=== PATIENT | female | born 1990 | race Caucasian/White ===

== ENCOUNTER 2019-04-24 10:08 | Outpatient (CLI) | payer SELFPAY ==
--- NOTE | 2019-04-24 10:22 | XR_ITS ---
WS: [id number] CHEST 2 VIEWS HISTORY: POSITIVE TB SKIN TEST COMPARISON: 03/09/2007 Lungs: Clear with no abnormality. No pleural effusion or pneumothorax. Cardiac size: Normal. Mediastinum/Aorta: Normal mediastinum. Bones: Normal. XR/XR chest 2V* [id number] IMPRESSION: Normal chest.
== END 2019-04-24 10:09 | disposition home or self-care (01) ==
LOC: RAD 10:16
PROVIDERS: PCP Nurse Practitioner Family; Visit Provider Nurse Practitioner Family
DX: R76.11 Nonspecific reaction to tuberculin skin test without active tuberculosis (principal)
CPT/HCPCS: 71046

== ENCOUNTER 2019-04-29 12:15 | Outpatient (CLI) | payer OTHER, SELFPAY ==
[2019-05-01 14:32] LABS: Quantiferon Mitogen 5.71 IU/mL; Quantiferon Nil 0.02 IU/mL; Quantiferon Plus TB1 0.01 IU/mL; Quantiferon TB Gold NEGATIVE (NEGATIVE)
== END 2019-04-29 12:16 | disposition home or self-care (01) ==
PROVIDERS: PCP Nurse Practitioner Family; Visit Provider Internal Medicine Critical Care Medicine
DX: R76.11 Nonspecific reaction to tuberculin skin test without active tuberculosis (principal)
CPT/HCPCS: 86480

== ENCOUNTER → 2024-10-15 10:46 | Outpatient (BNVA) | payer OTHER, SELFPAY | PROVIDERS: PCP Nurse Practitioner Family; Visit Provider Family Medicine | DX: R10.31 Right lower quadrant pain (principal); Z51.81 Encounter for therapeutic drug level monitoring | CPT/HCPCS: 80053; 85025; 86141 ==

== ENCOUNTER 2024-10-21 07:01 | Outpatient (CLI) | payer OTHER, SELFPAY ==
--- NOTE | 2024-10-21 08:00 | CT_ITS ---
WS: [id number] CT ABDOMEN AND PELVIS WITH CONTRAST HISTORY: Right lower quadrant abd pain TECHNIQUE: Imaging performed of the abdomen and pelvis with IV contrast. Single phase imaging of the abdomen. Coronal and sagittal reformats are submitted. All CT scans at [facility] use at least one of these dose optimization techniques: automated exposure control; mA and/or kV adjustment per patient size (includes targeted exams where dose is matched to clinical indication); or iterative reconstruction. IV CONTRAST: Omnipaque 350; 100 mL IV. Oral contrast: Yes. DLP: 307.39 mGy.cm COMPARISON: None available. Lower thorax: Micronodule at the lingula. Heart is normal size. No hiatal hernia. Liver/biliary system: Normal size with no intrahepatic dilatation. Gallbladder: Normal. No gallstones or wall thickening. No pericholecystic fluid. Pancreas: Normal size pancreas and pancreatic duct. No adjacent inflammation. Spleen: Normal size spleen. No mass or infarct. Adrenal glands: Normal. Right kidney: Normal size RIGHT kidney. There is very slight dilatation of the central renal pelvis and the ureter. No stone or mass identified. Ureter returns to a more normal caliber near the pelvic brim. No perinephric stranding. Left kidney: Normal. Aorta: Normal. Lymphadenopathy: None. Free fluid: None. GI tract: Stomach is well distended with oral contrast. No small bowel obstruction. There is moderate diffuse constipation with inspissated material. Appendix is normal. No colitis. Abdominal wall: Fat containing umbilical hernia. Pelvis: No free fluid or adenopathy within the pelvis. Uterus is midline. No pelvic masses. Bones: Unremarkable. CT/CT abdomen pelvis w con* [id number] IMPRESSION: 1. Normal appendix. 2. Very slight prominence of the RIGHT renal pelvis and proximal ureter which returns to normal caliber. No stones identified. This may be secondary to peris talsis of the ureter. No perinephric stranding. 3. No free fluid or adenopathy. No free air. 4. Diffuse moderate constipation with component of obstipation.
[2024-10-21] MEDS: iohexol 350 mg/mL 500 mL Btl (per mL) PO (08:38)
[2024-10-21] MEDS: iohexol 350 mg/mL 500 mL Btl (per mL) IV (08:39)
== END 2024-10-21 07:02 | disposition home or self-care (01) ==
LOC: RAD 07:03
PROVIDERS: PCP Family Medicine; Visit Provider Family Medicine
DX: K59.00 Constipation, unspecified (principal); R10.31 Right lower quadrant pain
CPT/HCPCS: 74177

== ENCOUNTER 2024-12-09 19:06 | Emergency (ER) | payer OTHER, SELFPAY ==
[2024-12-09 19:16] VITALS: BP 133/77; PULSE 78; RESP 16; TEMP 36.6; O2SAT 99; BMI 23.7
--- NOTE | 2024-12-09 20:54 | W.ED.WOUNDLC ---
HPI - Wound/Laceration General: Chief Complaint: Wound/Laceration Stated Complaint: Bite on Back of leg Selwyn sent Time Seen by Provider: 12/09/24 20:50 Source: patient Mode of arrival: ambulatory Limitations: no limitations History of Present Illness: 34-year-old female who states she had a bite to her posterior left ankle she noticed last week states it is gradually worsened had a blister that she says was drained yesterday by Dr. Samano states today she has had some increased pain with turning a bluish color she is not sure what it bit her she is on doxycycline and a steroid denies fever Associated symptoms: Denies chills, fever(s), nausea or vomiting Related Data Home Medications ?Medication ?Instructions ?Recorded ?Confirmed levonorgestrel-ethinyl estradiol 1 tab PO DAILY 10/15/24 12/08/24 0.1 mg-20 mcg tablet (Lessina) Previous Rx's ?Medication ?Instructions ?Recorded omeprazole 40 mg capsule,delayed 40 mg PO DAILY #30 caps 10/15/24 release doxycycline hyclate 100 mg tablet 100 mg PO BID #14 tabs 12/08/24 prednisone 20 mg tablet 40 mg (2 x 20 mg) PO DAILY #10 tabs 12/08/24 hydrocodone 5 mg-acetaminophen 325 1 tab PO Q8H PRN pain 7 days #20 12/09/24 mg tablet tabs sulfamethoxazole 800 1 tab PO BID 10 days #20 tabs 12/09/24 mg-trimethoprim 160 mg tablet (Bactrim DS) Allergies Allergy/AdvReac Type Severity Reaction Status Date / Time No Known Allergies Allergy Verified 10/15/24 10:06 Review of Systems Const: Denies: fever(s), chills, body aches or change in appetite ENMT: Denies: throat pain or dental pain Card: Denies: chest pain Resp: Denies: dyspnea GI: Denies: abdominal pain, nausea, vomiting or diarrhea Musc: Denies: neck pain or back pain Skin/Breast: Reports: erythema; Denies: rash Neuro: Denies: headache(s) PFSH ED PFSH: Medical History Positive skin test for tuberculosis Surgical History (Updated 10/15/24 @ 10:12 by Salvador Samano MD) No pertinent past surgical history Social History Smoking and tobacco/nicotine status: never used tobacco/nicotine Alcohol intake: current Alcohol intake frequency: holidays/special occasions only Substance/Drug Use: never Adopted: Yes Household members: spouse Marital status: Current occupational status: employed Current occupation: School counselor at [employer] Current occupational exposures/hazards: No Do you think of yourself as: Straight/Heterosexual Current gender identity: Female Physical Exam Const: COMMON NORMALS: no acute distress, patient oriented x3 and healthy appearing HENMT: COMMON NORMALS: normocephalic and atraumatic HEAD & SCALP: normocephalic and atraumatic Eye: COMMON NORMALS: conjunctivae normal CONJUNCTIVA: Yes conjunctivae normal Neck/C-Spine: COMMON NORMALS: full ROM and supple Chest: COMMONS NORMALS: normal inspection of the chest Resp: COMMON NORMALS: normal respiratory effort Cardio: COMMON NORMALS: regular rate RATE: regular rate Extremity: NARRATIVE EXTREMITY EXAM: Wound noted to posterior left ankle possibly brown recluse bite no deep tissue necrosis Neuro: COMMON NORMALS: patient oriented x3, moves all extremities and no focal motor deficits Psych: COMMON NORMALS: mental status grossly normal, Normal thought process present and cooperative THOUGHT PROCESS: Normal thought process present Skin: COMMON NORMALS: no rashes or lesions noted and no wounds GENERAL SKIN EXAM: no rashes or lesions noted Course Vital Signs: Vital signs: Vital Signs Temperature 97.9 F 12/09/24 19:16 Pulse Rate 78 12/09/24 19:16 Respiratory Rate 16 12/09/24 19:16 Blood Pressure 133/77 12/09/24 19:16 Pulse Oximetry 99 12/09/24 19:16 Oxygen Delivery Me thod Room Air 12/09/24 19:16 MDM - Wound/Laceration Medical Decision Making Patient presents here with a wound to left posterior ankle it could be a spider bite we will start her on Bactrim as well we will get her follow-up with wound care she is return if worsening no signs of deep necrosis at this time No radiology studies performed this visit Discharge Plan Discharge Patient Disposition: Home Clinical Impression: Spider bite Condition: Stable Prescriptions: New sulfamethoxazole-trimethoprim [Bactrim DS] 800-160 mg tablet 1 tab PO BID 10 Days Qty: 20 0RF No Action levonorgestrel-ethinyl estrad [Lessina] 0.1-20 mg-mcg tablet 1 tab PO DAILY omeprazole 40 mg capsule,delayed release(DR/EC) 40 mg PO DAILY Qty: 30 3RF prednisone 20 mg tablet 40 mg PO DAILY Qty: 10 0RF doxycycline hyclate 100 mg tablet 100 mg PO BID Qty: 14 0RF hydrocodone-acetaminophen 5-325 mg tablet 1 tab PO Q8H PRN (Reason: pain) 7 Days Qty: 20 0RF Discharge Orders: Discharge ED (Routine); Ordered 12/09/24 Ordered By: Charito Cannon Referrals: Ritu Serra PA [Referring, Wound Care] - 4-7 days Salvador Samano MD [Primary Care Provider, Family Practice] Discharge Diet: Advance as tolerated Discharge Activity: Resume usual activity Patient Instructions: Insect Bite or Sting (ED), Brown Recluse Spider Bite (ED) Print Language: Armenian Coding Level of Care Code ED Director Of Clinical Trials for Patricio Partida
[2024-12-09] MEDS: HYDROcodone-acetaminophen 5-325 mg Tablet 1 TAB PO (21:33)
[2024-12-09] MEDS: SULFAMETHOXAZOLE/TRIMETHOPRIM 5 ML UDC 10 ML PO (21:33)
--- NOTE | 2024-12-10 09:54 | DCPLANNER ---
messaged wound care for er f/u
== END 2024-12-09 21:51 | disposition home or self-care (01) ==
PROVIDERS: Emergency Provider Emergency Medicine; PCP Family Medicine
DX: S90.562A Insect bite (nonvenomous), left ankle, initial encounter (principal); W57.XXXA Bitten or stung by nonvenomous insect and other nonvenomous arthropods, initial encounter
CPT/HCPCS: 99283; J9999